=== PATIENT | female | born 1975 | race African-American/Black ===

== ENCOUNTER 2021-05-15 15:02 | Emergency (ER) | payer MEDICAID ==
[~2021-05-15] VITALS: Ht 165.1 cm; Wt 54.1 kg
[~2021-05-15 15:02] MED LIST: GABA300C PO
[2021-05-15 15:12] VITALS: BP 122/75
== END 2021-05-15 16:33 | disposition left against medical advice (07) ==
LOC: ER 15:03
DX: I49.8 Other specified cardiac arrhythmias (principal); Z53.21 Procedure and treatment not carried out due to patient leaving prior to being seen by health care provider
CPT/HCPCS: 93005

== ENCOUNTER → 2024-04-06 | Outpatient (CLI) | payer MEDICAID | END | disposition home or self-care (01) | LOC: RAD 09:01 | PROVIDERS: ATTEND Family Medicine | DX: R59.9 Enlarged lymph nodes, unspecified (principal) | CPT/HCPCS: 76536 ==